=== PATIENT | female | born 1970 | race Hispanic/Latino ===

== ENCOUNTER 2017-11-03 11:21 | Emergency (ER) | payer OTHER, SELFPAY ==
[2017-11-03 11:53] VITALS: BP 129/88; PULSE 67; RESP 18; TEMP 98.6; O2SAT 99
--- NOTE | 2017-11-03 12:54 | ED PDOC ---
HPI: Abdomen Time Seen by Provider: 11/03/17 12:14 Chief Complaint (Nursing): Abdominal Pain History Per: Patient (Lower abd pain x 1 month. No dysuria or frequency. Denies NVD. No fever. Also c/o right fank pain radiating to left side.) Onset/Duration Of Symptoms: Other (1 month) Severity: Mild Location Of Pain/Discomfort: LLQ Quality Of Discomfort: Cramping Associated Symptoms: denies: Nausea, Vomiting, Diarrhea, Urinary Symptoms Exacerbating Factors: None Abnormal Vaginal Bleeding: No Past Medical History Vital Signs: Last Vital Signs Temp 98.6 F 11/03/17 11:51 Pulse 67 11/03/17 11:51 Resp 18 11/03/17 11:51 BP 129/88 11/03/17 11:51 Pulse Ox 99 11/03/17 12:54 - Medical History PMH: HTN - Surgical History Surgical History: Appendectomy - Family History Family History: States: Unknown Family Hx - Home Medications Home Medications: Ambulatory Orders Medication Instructions Recorded diaZEpam [Valium] 5 mg PO Q6 PRN #14 tab 06/29/15 Azithromycin [Zithromax Z-Jovon] 250 mg PO DAILY #1 packet 11/19/15 Benzonatate 200 mg PO TID PRN #20 capsule 11/19/15 Ibuprofen [Motrin] 600 mg PO Q6 PRN #15 tab 11/19/15 Methylprednisolone [Medrol] 4 mg PO TITR #1 unit 02/21/16 Naproxen [Naprosyn] 500 mg PO Q12H #20 tab 11/03/17 - Allergies Allergies/Adverse Reactions: Allergies Allergy/AdvReac Type Severity Reaction Status Date / Time aspirin Allergy ANAPHYLAXIS Verified 02/21/16 22:24 Review of Systems Constitutional: Negative for: Fever Gastrointestinal: Positive for: Abdominal Pain. Negative for: Nausea, Vomiting , Diarrhea Genitourinary Female: Negative for: Dysuria, Frequency Musculoskeletal: Positive for: Back Pain Physical Exam - Physical Exam Appears: Positive for: Non-toxic, No Acute Distress Gastrointestinal/Abdominal: Positive for: Bowel Sounds, Soft, Tenderness (LLQ). Negative for: Mass Back: Negative for: L CVA Tenderness, R CVA Tenderness - ECG O2 Sat by Pulse Oximetry: 99 Disposition - Clinical Impression Clinical Impression: Ovarian cyst - Patient ED Disposition Is Patient to be Admitted: No - Disposition Disposition: Routine/Home Disposition Time: 15:42 Condition: FAIR Prescriptions: Naproxen [Naprosyn] 500 mg PO Q12H #20 tab Instructions: Ovarian Cyst (ED) Forms: [employer] (Portuguese)
--- NOTE | 2017-11-03 15:17 | US ---
HISTORY: pelvic pain COMPARISON: None available. TECHNIQUE: Transvaginal FINDINGS: UTERUS: Measures 7.8 x 4.7 x 4.4 cm. Normal in size and appearance. No fibroid or other mass lesion seen. ENDOMETRIUM: Measures 11 mm in diameter. Unremarkable. CERVIX: No cervical abnormality identified. RIGHT OVARY: Measures 2.1 x 1.4 x 1.2 cm. No solid mass. Normal flow. Punctate calcification noted incidentally LEFT OVARY: Measures 2.8 x 2.5 x 2.5 cm. No solid mass. Normal flow. Simple cyst, 1.5 x 1.8 x 1.8 cm, presumed physiologic FREE FLUID: No significant free fluid noted. OTHER FINDINGS: None. IMPRESSION: Unremarkable pelvic ultrasound.
== END 2017-11-03 16:45 | disposition home or self-care (01) ==
LOC: H.ER 11:21
DX: N83.209 Unspecified ovarian cyst, unspecified side (principal); I10 Essential (primary) hypertension

== ENCOUNTER 2018-10-02 15:44 | Emergency (ER) | payer SELFPAY ==
[2018-10-02 17:06] VITALS: RESP 18; O2SAT 98
[2018-10-02] MEDS ORDERED: Sodium Chloride 0.9% 1,000 ML IV STA (19:22)
--- NOTE | 2018-10-02 19:47 | ED PDOC ---
HPI: Female Pain Time Seen by Provider: 10/02/18 18:55 Chief Complaint (Nursing): Abdominal Pain Chief Complaint (Provider): Dysuria History Per: Patient History/Exam Limitations: no limitations Additional Complaint(s): Pt reports dysuria, frequency and abdominal bloating X few weeks. Denies fever, abdominal pain, hematuria, back pain. Past Medical History Reviewed: Nursing Documentation, Vital Signs Vital Signs: Last Vital Signs Temp 98.7 F 10/02/18 17:05 Pulse 74 10/02/18 17:05 Resp 18 10/02/18 17:05 BP 133/71 10/02/18 17:05 Pulse Ox 98 10/02/18 17:05 - Medical History PMH: No Chronic Diseases, HTN - Surgical History Surgical History: Appendectomy - Family History Family History: States: Unknown Family Hx - Social History Current smoker - smoking cessation education provided: No Alcohol: None - Home Medications Home Medications: Ambulatory Orders Medication Instructions Recorded diaZEpam [Valium] 5 mg PO Q6 PRN #14 tab 06/29/15 Azithromycin [Zithromax Z-Jovon] 250 mg PO DAILY #1 packet 11/19/15 Benzonatate 200 mg PO TID PRN #20 capsule 11/19/15 Ibuprofen [Motrin] 600 mg PO Q6 PRN #15 tab 11/19/15 Methylprednisolone [Medrol] 4 mg PO TITR #1 unit 02/21/16 Naproxen [Naprosyn] 500 mg PO Q12H #20 tab 11/03/17 Naproxen [Naprosyn] 500 mg PO Q12 #14 tab 10/03/18 - Allergies Allergies/Adverse Reactions: Allergies Allergy/AdvReac Type Severity Reaction Status Date / Time aspirin Allergy ANAPHYLAXIS Verified 02/21/16 22:24 Review of Systems Constitutional: Negative for: Fever, Chills Cardiovascular: Negative for: Chest Pain Respiratory: Negative for: Cough, Shortness of Breath Gastrointestinal: Negative for: Nausea, Vomiting, Abdominal Pain, Diarrhea Genitourinary Female: Positive for: Dysuria, Frequency. Negative for: Hematuria, Vaginal Discharge, Vaginal Bleeding Musculoskeletal: Negative for: Neck Pain, Back Pain Skin: Negative for: Rash Neurological: Negative for: Headache Physical Exam - Reviewed Nursing Documentation Reviewed: Yes Vital Signs Reviewed: Yes - Physical Exam Appears: Positive for: Well, No Acute Distress Skin: Positive for: Normal Color, Warm, Dry Eye Exam: Positive for: Normal appearance, EOMI, PERRL Cardiovascular/Chest: Positive for: Regular Rate, Rhythm Respiratory: Positive for: Normal Breath Sounds Gastrointestinal/Abdominal: Positive for: Bowel Sounds, Soft, Tenderness (Suprapubic, BLQ). Negative for: Mass, Distended, Guarding, Rebound Back: Positive for: Normal Inspection. Negative for: L CVA Tenderness, R CVA Tenderness Extremity: Positive for: Normal ROM Neurologic/Psych: Positive for: Alert, Oriented - Laboratory Results Result Diagrams: 10/02/18 20:03 10/02/18 20:03 - ECG O2 Sat by Pulse Oximetry: 98 Medical Decision Making Medical Decision Makin yo female with dysuria, hematuria and suprapubic pain. - labs - CT abd/pelvis - IVF - Toradol Time: 2255 --CT ABD/pelvis Findings Lower thorax Unremarkable. Liver Unremarkable. No gross lesion or ductal dilatation. Gallbladder and bile ducts Contracted. Appears grossly unremarkable. Pancreas Unremarkable. No gross lesion or ductal dilatation. Spleen Unremarkable. Adrenals Unremarkable. No mass. Kidneys and ureters Unremarkable. No hydronephrosis. No solid mass. Vasculature Unremarkable. No aortic aneurysm. Bowel Unremarkable. No obstruction. No gross mural thickening. Appendix Status post appendectomy. Peritoneum Unremarkable. No free fluid. No free air. Lymph nodes There are innumerable small mesenteric lymph nodes present associated with mesenteric infiltration consistent with mesenteric lymphadenitis. Bladder Unremarkable. Reproductive A 4 x 3.5 cm left ovarian cyst is seen, which appears simple. There is a complex 1.2 cm right ovarian follicular cyst noted. There is trace amount of fluid present in the pelvic cul-de-sac. Uterus is grossly normal. Bones No acute fracture. Other Findings None. Impression Findings consistent with mesenteric lymphadenitis. A simple 4 x 3.5 cm left ovarian cyst. A complex 1.2 cm right ovarian follicular cyst. Trace amount of fluid in the pelvic cul-de-sac. Consider follow up with pelvic ultrasound. Time: 2299 --US pelvis/transvaginal additionally ordered for (+) ovarian cysts and abdominal pain. Disposition - Clinical Impression Clinical Impression: Ovarian cyst, Ovarian cyst - Disposition [facility] Disposition: Transfer of Care Disposition Time: 00:00 Condition: STABLE Prescriptions: Naproxen [Naprosyn] 500 mg PO Q12 #14 tab Instructions: Ovarian Cysts Forms: [employer] (Malay) Print Language: ENGLISH
[2018-10-02 19:58] LABS: SQUAMOUS EPITHIAL 6 /hpf (0-5); URINE BACTERIA RARE (<OCC); URINE BILIRUBIN NEGATIVE (NEGATIVE); URINE BLOOD NEGATIVE (NEGATIVE); URINE CLARITY SLIGHTY-CLOUDY (Clear); URINE COLOR YELLOW (YELLOW); URINE GLUCOSE (UA) NEG (NEGATIVE); URINE LEUKOCYTE ESTERASE NEG Leu/uL (Negative); URINE PROTEIN NEGATIVE (NEGATIVE); URINE UROBILINOGEN 0.2-1.0 mg/dL (0.2-1.0)
[2018-10-02 20:27] LABS: BASO % 0.6 % (0.0-2.0); EOS # 0.2 K/uL (0.0-0.7); HEMOGLOBIN 13.1 g/dL (12.0-16.0); LYMPH # 1.5 K/uL (1.0-4.3); LYMPH % 25.7 % (20.0-40.0); MEAN CELL VOLUME 91.1 fl (81.0-99.0); MEAN CORPUSCULAR HEMOGLOBIN 30.1 pg (27.0-31.0); MEAN CORPUSCULAR HGB CONC 33.1 g/dL (33.0-37.0); MEAN PLATELET VOLUME 9.7 fl (7.2-11.7); MONO # 0.9 K/uL (0.0-0.8); MONO % 14.4 % (0.0-10.0); NEUT # 3.4 K/uL (1.8-7.0); NEUT % 56.3 % (50.0-75.0); RBC 4.36 Mil/uL (3.80-5.20); RED CELL DISTRIBUTION WIDTH 13.6 % (11.5-14.5)
[2018-10-02 20:38] LABS: ALB/GLOB RATIO 1.3 (1.0-2.1); ALBUMIN 3.9 g/dL (3.5-5.0); ALT/SGPT 33 U/L (9-52); AST/SGOT 22 U/L (14-36); BLOOD UREA NITROGEN 17 mg/dl (7-17); CALCIUM 8.7 mg/dL (8.4-10.2); GFR NON-AFRICAN AMERICAN > 60
[2018-10-02] MEDS ORDERED: Iohexol 300 100 ML IJ ONE (21:47)
[2018-10-02] MEDS ORDERED: Sodium Chloride 0.9% 50 ML IV ONE (21:47)
--- NOTE | 2018-10-03 00:07 | ED PDOC ---
- Laboratory Results Result Diagrams: 10/02/18 20:03 10/02/18 20:03 Lab Results: Total Bilirubin 0.3 mg/dl (0.2-1.3) 10/02/18 20:03 AST 22 U/L (14-36) 10/02/18 20:03 ALT 33 U/L (9-52) 10/02/18 20:03 Alkaline Phosphatase 58 U/L (38-126) 10/02/18 20:03 Total Protein 7.1 G/DL (6.3-8.2) 10/02/18 20:03 Albumin 3.9 g/dL (3.5-5.0) 10/02/18 20: Globulin 3.1 gm/dL (2.2-3.9) 10/02/18 20: Albumin/Globulin Ratio 1.3 (1.0-2.1) 10/02/18 20: Urine Color Yellow (YELLOW) 10/02/18: Urine Clarity Slighty-cloudy (Clear) 10/02/18: Urine pH 6.0 (5.0-8.0) 10/02/18: Ur Specific [place] 1.026 (1.003-1.030) 10/02/18: Urine Protein Negative mg/dL (NEGATIVE) 10/02/18 Urine Glucose (UA) Neg mg/dL (NEGATIVE) 10/02/18 Urine Ketones Negative mg/dL (NEGATIVE) 10/02/18: Urine Blood Negative (NEGATIVE) 10/02/18: Urine Nitrate Negative (NEGATIVE) 10/02/18: Urine Bilirubin Negative (NEGATIVE) 10/02/18: Urine Urobilinogen 0.2-1.0 mg/dL (0.2-1.0) 10/02/18: Ur Leukocyte Esterase Neg Kimmie/uL (Negative) 10/02/18 Urine RBC (Auto) 2 /hpf (0-3) 10/02/18: Urine Microscopic WBC 1 /hpf (0-5) 10/02/18: Ur Squamous Epith Cells 6 /hpf (0-5) H 10/02/18: Urine Bacteria Rare (<OCC) 10/02/18:30 - ECG O2 Sat by Pulse Oximetry: 98 Medical Decision Making Medical Decision Making: Time: 00:00 --Patient endorsed to provider by Dr. Dietz, pending US pelvis/transvaginal results and re-eval. Time: 137 --US pelvis/transvag Findings: Unremarkable anteverted uterus measuring 8.4x4.4x6.9 cm. Normal cervix measuring 3 cm. Endometrium is normal in thickness measuring 13 mm. Fluid is noted in the pelvic cul-de-sac. The right ovary is unremarkable. Small amount of free fluid adjacent to the right adnexa. Complex lesion of the left ovary measuring 4.3x1.4 cm. Impression: Complex cystic lesion of the left ovary. Hemorrhagic cyst versus endometrioma. No associated ovarian torsion. Free fluid in the pelvic cul-de-sac. Time: 150 --Upon provider reevaluation, patient is medically stable, reports improvement in symptoms, and requires no further treatment in the ED at this time. Patient will be discharged home with Rx for Naprosyn 500mg. Counseling was provided and all questions were answered regarding diagnosis. There is agreement to discharge plan. Return if symptoms persist or worsen. Clinical Impression: Ovarian cysts ---- Scribe Attestation: Documented by Iveth Walker, acting as a scribe for Deuce Hollis MD. Provider Scribe Attestation: All medical record entries made by the Scribe were at my direction and personally dictated by me. I have reviewed the chart and agree that the record accurately reflects my personal performance of the history, physical exam, medical decision making, and the department course for this patient. I have also personally directed, reviewed, and agree with the discharge instructions and disposition. Disposition Counseled Patient/Family Regarding: Studies Performed, Diagnosis, Rx Given - Clinical Impression Clinical Impression: Ovarian cyst - POA Present On Arrival: None - Disposition Disposition: Routine/Home Disposition Time: 01:51 Condition: IMPROVED Prescriptions: Naproxen [Naprosyn] 500 mg PO Q12 #14 tab Forms: [employer] (Moldovan)
[2018-10-03 02:16] VITALS: BP 134/88; PULSE 59; TEMP 97.7
--- NOTE | 2018-10-03 11:52 | CT ---
Date of service: 10/02/2018 PROCEDURE: CT Abdomen and Pelvis with contrast HISTORY: Suprapubic pain COMPARISON: October 02, 2018. Pelvic US TECHNIQUE: Intravenous contrast dose: 90 cc Omnipaque 300 Radiation dose: Total exam DLP = 344.46 mGy-cm. This CT exam was performed using one or more of the following dose reduction techniques: Automated exposure control, adjustment of the mA and/or kV according to patient size, and/or use of iterative reconstruction technique. FINDINGS: LOWER THORAX: Unremarkable. LIVER: Unremarkable. No gross lesion or ductal dilatation. GALLBLADDER AND BILE DUCTS: Unremarkable. PANCREAS: Unremarkable. No gross lesion or ductal dilatation. SPLEEN: Unremarkable. ADRENALS: Unremarkable. No mass. KIDNEYS AND URETERS: Unremarkable. No hydronephrosis. No solid mass. VASCULATURE: Unremarkable. No aortic aneurysm. No atherosclerotic calcification or mural plaque present. BOWEL: Unremarkable. No obstruction. No gross mural thickening. APPENDIX: Normal appendix. PERITONEUM: Trace free fluid identified in the pelvis/cul de sac. No free air. LYMPH NODES: Multiple enlarged mesenteric and retroperitoneal lymph nodes possibly mesenteric adenitis. BLADDER: Unremarkable. REPRODUCTIVE: Unremarkable uterus. Enlarged left adnexa with cystic mass measuring 0.1 x 4.2 cm. Mean Hounsfield unit values 11.7. Partial collapse deformity right adnexal cysts. BONES: No acute fracture. OTHER FINDINGS: None. IMPRESSION: Left adnexal cysts. Ruptured right adnexal cyst. Findings consistent with mesenteric/retroperitoneal lymph adenitis. Concordant findings (preliminary report) provided by [employer].
--- NOTE | 2018-10-03 13:49 | US ---
Date of service: 10/02/2018 HISTORY: Bilateral ovarian cysts, presenting with abdominal pain. LMP 09/13/2018. Cycles are irregular. COMPARISON: 11/03/2017. pelvic ultrasound. October 02, 2018. CT abdomen and pelvis. TECHNIQUE: Transabdominal, transvaginal. Real -time technique with 2D, duplex and color Doppler. FINDINGS: UTERUS: Measures 4.4 x 6.9 x 8.4 cm. Normal in size and appearance. No fibroid or other mass lesion seen. ENDOMETRIUM: Measures 13.1 mm in diameter. No ultrasound findings to suggest gestational sac, fluid, debris, mass or polyp or other pathologic process within the endometrium. CERVIX: No cervical abnormality identified. Closed cervix measures 3.0 cm in length RIGHT OVARY: Measures 1.5 x 3.7 x 1.5 cm. Complex cyst/cystic mass 4.3 x 4.4 x 4.3 cm. This corresponds findings on recent CT. The findings are likely hemorrhagic/debris laden cyst. Normal flow. LEFT OVARY: Measures cm. No solid mass. Normal flow. FREE FLUID: Trace free fluid identified in the pelvis/cul de sac. OTHER FINDINGS: None. IMPRESSION: Redemonstration of complex cyst/cystic mass left adnexa. Otherwise no significant/acute findings. Trace fluid in the cul-de-sac extending to the right to a pair adnexal location. Concordant findings (preliminary report) provided by [employer] [facility].
== END 2018-10-03 02:25 | disposition home or self-care (01) ==
LOC: H.ER 15:44
DX: N83.202 Unspecified ovarian cyst, left side (principal); N83.201 Unspecified ovarian cyst, right side
CPT/HCPCS: 74177; 76830; 76856; 80053; 81003; 81025; 85025; 87086; 96374; 99284; J1885; J7030; Q9967